=== PATIENT | male | born 1975 | race Caucasian/White ===

== ENCOUNTER 2019-11-12 09:32 | Emergency (ER) | payer OTHER ==
[~2019-11-12] VITALS: Ht 185.4 cm; Wt 102.1 kg
[~2019-11-12 09:32] MED LIST: Z.0.FLONASE16 GM NS; Z.0.PRILOSEC20 MG PO; Z.0.WELLBUTRIN XL300 PO
[2019-11-12] MEDS ORDERED: HYDROCODONE/APAP 7.5MG-325MG 1 EA TAB PO ONE (11:19)
--- NOTE | 2019-11-12 11:48 | Diagnostic Imaging Report ---
Exam: SHOULDER LEFT COMPLETE - 2 views History: Left shoulder pain, hit against door frame 8 ACL, history of fracture in past Comparison: Chest radiographs 09/22/2010 Findings: No fractures or acute osseous abnormalities. No joint malalignment or dislocation. Mild degenerative changes of the acromioclavicular joint with questionable subtle chondrocalcinosis. Soft tissues are unremarkable. Impression: 1. No acute osseous abnormality. 2. Mild degenerative changes of the acromioclavicular joint with questionable subtle chondrocalcinosis. Signed by: Reyes Cavanaugh MD on 11/12/2019 11:44 AM
--- NOTE | 2019-11-12 14:18 | NUR ---
PATIENT BROUGHT BACK INTO TRIAGE
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
--- NOTE | 2019-11-12 14:44 | NUR ---
PATIENT PLACED IN ARM SLING
== END 2019-11-12 14:52 | disposition home or self-care (01) ==
LOC: ER 09:48
DX: M25.512 Pain in left shoulder (principal); S40.012A Contusion of left shoulder, initial encounter; Y93.E6 Activity, residential relocation; Y92.008 Other place in unspecified non-institutional (private) residence as the place of occurrence of the external cause; K21.9 Gastro-esophageal reflux disease without esophagitis; F17.210 Nicotine dependence, cigarettes, uncomplicated
CPT/HCPCS: 99283

== ENCOUNTER 2024-11-01 19:42 | Inpatient (IN) | payer MEDICARE, OTHER ==
[~2024-11-01] VITALS: Ht 185.4 cm; Wt 102.1 kg
[2024-11-01 20:25] LABS: BASOPHILS % 0.4 % (0.0-1.0); EOSINOPHILS % 1.1 % (0.0-6.0); LYMPHOCYTES % 28.0 % (18.0-39.1); MONOCYTES % 7.4 % (4.4-11.3); NEUTROPHILS % 62.8 % (38.7-80.0); RED CELL DISTRIBUTION WIDTH 12.6 % (11.7-14.4)
[2024-11-01] MEDS: ONDANSETRON HCL INJ 2MG/ML 2ML 2 MG/ML VIAL IV STA (20:26)
[2024-11-01] MEDS: SODIUM CHLORIDE 0.9% 1000ML 1,000 ML IV ONE (20:26)
[2024-11-01 20:49] LABS: EST GLOMERULAR FILTRATION RATE 87.0 ML/MIN (>=60)
[2024-11-01] MEDS ORDERED: IOPAMIDOL 370 MG/ML 100 ML INFUS..BTL INJ ONE (20:56)
[2024-11-01] MEDS: KETOROLAC TROMETHAMINE 30 MG/ML VIAL IV STA (21:31)
[2024-11-01] MEDS: METRONIDAZOLE 500MG/NS 100ML 100 ML IV SCH (22:00)
[2024-11-01] MEDS: SODIUM CHLORIDE 0.9% 1000ML 1,000 ML IV SCH (22:00)
[2024-11-01 22:05] VITALS: PULSE 64; RESP 23; TEMP 98.2
[2024-11-01 23:01] LABS: LEUKOCYTE ESTERASE ,URINE NEGATIVE (NEGATIVE); PROTEIN,URINE DIPSTICK 1+ (NEGATIVE); URINE UROBILINOGEN 0.2 mg/dL (0.2 - 1)
[2024-11-01 23:04] LABS: EPITHELIAL CELLS,URINE FEW /LPF
[2024-11-02] VITALS (12 sets, daily range): BP systolic 118–156; BP diastolic 76–96; PULSE 57–68; RESP 16–18; TEMP 97.8–98.2; O2SAT 96–99
[2024-11-02] MEDS ORDERED: BUPROPION XL150 MG PO (00:14)
[2024-11-02] MEDS ORDERED: PRAZOSIN HCL1 GM (00:15)
[2024-11-02] MEDS ORDERED: TRAZODONE HCL50 MG PO (00:15)
[2024-11-02] MEDS ORDERED: LEXAPRO10 MG PO (00:15)
[2024-11-02] MEDS ORDERED: METHOCARBAMOL750 MG PO (00:50)
[2024-11-02] MEDS ORDERED: HYDROCODON-ACE1 EAC9 (00:52)
[2024-11-02] MEDS ORDERED: PRAZOSIN HCL1 MG (00:55)
[2024-11-02] MEDS: HYDROMORPHONE 1MG/1ML INJ IV PRN (01:40)
[2024-11-02] MEDS: ONDANSETRON HCL INJ 2MG/ML 2ML 2 MG/ML VIAL IV PRN (01:40)
[2024-11-02 05:15] LABS: BASOPHILS % 0.4 % (0.0-1.0); EOSINOPHILS % 1.7 % (0.0-6.0); LYMPHOCYTES % 28.5 % (18.0-39.1); MONOCYTES % 8.3 % (4.4-11.3); NEUTROPHILS % 60.8 % (38.7-80.0); RED CELL DISTRIBUTION WIDTH 12.7 % (11.7-14.4)
[2024-11-02 05:46] LABS: EST GLOMERULAR FILTRATION RATE 95.0 ML/MIN (>=60)
[2024-11-02] MEDS ORDERED: BUPROPION HCL 150 MG TABCR PO SCH (09:45)
[2024-11-02] MEDS ORDERED: HYDRALAZINE HCL 20 MG/ML VIAL IV PRN (09:45)
[2024-11-02] MEDS ORDERED: ACETAMINOPHEN 325 MG TAB PO PRN (09:45)
[2024-11-02] MEDS: ACETAMINOPHEN 325 MG TAB PO PRN (10:24)
[2024-11-02] MEDS: PREGABALIN 50 MG CAP PO SCH (11:00)
[2024-11-02] MEDS: ESCITALOPRAM OXALATE 10 MG TAB PO SCH (11:37)
[2024-11-02] MEDS: KETOROLAC TROMETHAMINE 30 MG/ML VIAL IV PRN (11:39)
[2024-11-02] MEDS: LEVOFLOXACIN 500MG/D5W 100ML 100 ML IV SCH (11:40)
[2024-11-02] MEDS ORDERED: BUSPIRONE HCL10 MG PO (12:12)
[2024-11-02] MEDS: HYDROCODONE/APAP 10MG-325MG TAB PO PRN (12:34)
[2024-11-02] MEDS: KCL 40MEQ/0.9% SOD CHL 1,000 ML IV SCH (12:35)
[2024-11-02] MEDS: METRONIDAZOLE 500MG/NS 100ML 100 ML IV SCH (13:23)
[2024-11-02] MEDS: BUSPIRONE HCL 5 MG TAB PO SCH (16:36)
[2024-11-02] MEDS: METHOCARBAMOL 500 MG TAB PO SCH (16:37)
[2024-11-02] MEDS: TRAZODONE HCL 50 MG TAB PO SCH (21:27)
[2024-11-02] MEDS: PRAZOSIN HCL 1 MG CAP PO SCH (21:27)
[2024-11-03] VITALS (7 sets, daily range): BP systolic 115–131; BP diastolic 70–99; PULSE 53–75; RESP 15–18; TEMP 97.6–98.3; O2SAT 96–99
[2024-11-03 09:44] LABS: BASOPHILS % 0.5 % (0.0-1.0); EOSINOPHILS % 2.3 % (0.0-6.0); LYMPHOCYTES % 34.8 % (18.0-39.1); MONOCYTES % 7.0 % (4.4-11.3); NEUTROPHILS % 55.1 % (38.7-80.0); RED CELL DISTRIBUTION WIDTH 12.6 % (11.7-14.4)
[2024-11-03 09:56] LABS: EST GLOMERULAR FILTRATION RATE 105.0 ML/MIN (>=60)
[2024-11-04 00:34] VITALS: BP 114/73; PULSE 59; RESP 16; TEMP 97.7; O2SAT 98
[2024-11-04 04:16] VITALS: BP 123/96; PULSE 61; RESP 16; TEMP 97.5; O2SAT 99
[2024-11-04 08:29] VITALS: PULSE 65; RESP 18; O2SAT 94
[2024-11-04 09:00] VITALS: BP 128/84; PULSE 55; RESP 18; TEMP 97.8; O2SAT 97
[2024-11-04 09:38] LABS: EST GLOMERULAR FILTRATION RATE 108.0 ML/MIN (>=60)
[2024-11-04 09:40] LABS: PHOSPHORUS 3.3 MG/DL (2.3-4.7)
== END 2024-11-04 13:40 | disposition home or self-care (01) | DRG 392 ==
LOC: ER 20:15 → ERHOLD 21:48 → MED/SURG 23:37 → OBSVTOIN 11-02 09:40
PROVIDERS: ADMIT Internal Medicine; ATTEND Internal Medicine
DX: K52.9 Noninfective gastroenteritis and colitis, unspecified (principal); N39.0 Urinary tract infection, site not specified; A05.9 Bacterial foodborne intoxication, unspecified; K21.9 Gastro-esophageal reflux disease without esophagitis; J45.909 Unspecified asthma, uncomplicated; D72.829 Elevated white blood cell count, unspecified; F41.8 Other specified anxiety disorders; E87.8 Other disorders of electrolyte and fluid balance, not elsewhere classified; G89.4 Chronic pain syndrome; Z86.711 Personal history of pulmonary embolism; Z79.01 Long term (current) use of anticoagulants; Z72.0 Tobacco use; Z88.5 Allergy status to narcotic agent
CPT/HCPCS: 36415; 74177; 80048; 80053; 81001; 83690; 83735; 84100; 85025; 87086; 94799; 99252; 99284; G0378; J1171; J1885; J1956; J2405; J2543; J7030; Q9967